=== PATIENT | male | born 1980 | race Caucasian/White ===

== ENCOUNTER → 2017-07-01 | Outpatient (CLI) | payer OTHER | LOC: M.ULTRA 16:13 | DX: R60.0 Localized edema (principal); M79.604 Pain in right leg; M79.605 Pain in left leg ==

== ENCOUNTER → 2020-11-15 | Outpatient (CLI) | payer OTHER | LOC: M.MRI 11:30 | PROVIDERS: ATTEND Family Medicine | DX: M51.24 Other intervertebral disc displacement, thoracic region (principal); M47.14 Other spondylosis with myelopathy, thoracic region ==

== ENCOUNTER → 2021-05-13 | Outpatient (CLI) | payer OTHER | LOC: M.ULTRA 16:00 | PROVIDERS: ATTEND Physician Assistant | DX: M79.89 Other specified soft tissue disorders (principal) ==